=== PATIENT | male | born 1955 | race Caucasian/White ===

== ENCOUNTER 2018-05-31 13:08 | Inpatient (IN) | payer OTHER ==
[~2018-05-31] VITALS: Ht 182.9 cm; Wt 132.3 kg
[2018-05-31 13:37] VITALS: Ht 182.9 cm; Wt 132.3 kg
[2018-05-31 16:36] LABS: BASOPHIL % 0.7 % (0-2); PLATELET COUNT 223 x10^3mcL (130-400); RED CELL DISTRIBUTION WIDTH 13.3 % (11.5-14.5)
[2018-05-31 16:47] LABS: UA SPECIFIC GRAVITY <=1.005 (1.005-1.035); microscopic required? YES; urine erythrocyte 1+ (NEGATIVE)
[2018-05-31 16:54] LABS: ALBUMIN 4.4 g/dL (3.4-5.0); BILIRUBIN TOTAL 0.92 mg/dL (0.20-1.00); CALCIUM 8.8 mg/dL (8.5-10.1); CARBON DIOXIDE 27.8 mmol/L (21-32); CREATININE SERUM 1.6 mg/dL (0.7-1.3); POTASSIUM SERUM 3.4 mmol/L (3.5-5.1); TOTAL PROTEIN, SERUM 8.2 g/dL (6.4-8.2)
[2018-05-31 20:01] LABS: T3 TOTAL 1.07 ng/mL
[2018-05-31 20:09] LABS: CHOLESTEROL/HDL RATIO 3.1; FREE T4 1.13 ng/dL (0.76-1.46); FREE THYROXINE INDEX 3.8 ug/dL (1.4-4.5); MAGNESIUM 1.3 mg/dL (1.8-2.4); PHOSPHOROUS 3.3 mg/dL (2.5-4.9); T4(THYROXINE) 12.1 ug/dL (4.7-13.3)
[2018-05-31 20:14] LABS: AMPHETAMINE QUAL UR NONE DETECTED (See below)
[2018-05-31 20:30] VITALS: BP 113/75
[2018-05-31 20:39] VITALS: BP 132/80
[2018-06-01] MEDS ORDERED: HYDROCHLOROTHIA50 MG PO (01:09)
[2018-06-01] MEDS ORDERED: METFORMIN HCL850 MG PO (01:13)
[2018-06-01] MEDS ORDERED: OMEPRAZOLE MAGN20 M1 PO (01:17)
[2018-06-01] MEDS ORDERED: AMLODIPINE BESY10 M2 PO (01:18)
[2018-06-01] MEDS ORDERED: BENAZEPRIL HYDR40 M1 PO (01:19)
[2018-06-01 02:20] LABS: IRON 64 ug/dL (65-170); TOTAL IRON BINDING CAPACITY 374 ug/dL (250-450)
[2018-06-01 02:25] LABS: CARBON DIOXIDE 28.2 mmol/L (21-32); CREATININE SERUM 1.3 mg/dL (0.7-1.3); POTASSIUM SERUM 3.2 mmol/L (3.5-5.1)
[2018-06-01 02:41] LABS: RED BLOOD CELLS 3.61 M/mm3 (4.52-5.90)
[2018-06-01 05:10] VITALS: BP 115/70
[2018-06-01 07:39] LABS: CALCIUM 8.8 mg/dL (8.5-10.1); CHLORIDE SERUM 91 mmol/L (98-107); CREATININE SERUM 1.1 mg/dL (0.7-1.3); GFR1 > 60 mL/min; GLUCOSE SERUM 100 mg/dL (74-106); POTASSIUM SERUM 3.3 mmol/L (3.5-5.1); SODIUM SERUM 129 mmol/L (136-145)
[2018-06-01 07:54] LABS: BASOPHIL % 0.4 % (0-2); PLATELET COUNT 196 x10^3mcL (130-400); RED CELL DISTRIBUTION WIDTH 13.1 % (11.5-14.5)
[2018-06-01 08:42] VITALS: BP 105/62
[2018-06-01 13:00] VITALS: BP 118/60
[2018-06-01 17:26] VITALS: BP 130/68
[2018-06-01 20:39] VITALS: BP 125/90
[2018-06-02 05:16] VITALS: BP 136/84
[2018-06-02 07:35] LABS: BASOPHIL % 0.5 % (0-2); PLATELET COUNT 209 x10^3mcL (130-400); RED CELL DISTRIBUTION WIDTH 13.5 % (11.5-14.5)
[2018-06-02 07:59] LABS: CALCIUM 8.8 mg/dL (8.5-10.1); CARBON DIOXIDE 25.5 mmol/L (21-32); CHLORIDE SERUM 98 mmol/L (98-107); GFR1 > 60 mL/min; GLUCOSE SERUM 107 mg/dL (74-106); POTASSIUM SERUM 3.6 mmol/L (3.5-5.1); SODIUM SERUM 134 mmol/L (136-145)
[2018-06-02 08:39] VITALS: BP 119/74
[2018-06-02 13:45] VITALS: BP 119/74
== END 2018-06-02 18:02 | disposition home or self-care (01) | DRG 48 ==
LOC: ED 13:08 → DU 18:13 → MU 06-01 08:56 → DU 06-02 06:16
PROVIDERS: Emergency Medicine; Family Medicine
DX: G90.8 Other disorders of autonomic nervous system (principal); N17.0 Acute kidney failure with tubular necrosis; E87.1 Hypo-osmolality and hyponatremia; E83.42 Hypomagnesemia; E11.9 Type 2 diabetes mellitus without complications; D64.9 Anemia, unspecified; F17.210 Nicotine dependence, cigarettes, uncomplicated; E86.0 Dehydration; G89.29 Other chronic pain; M54.9 Dorsalgia, unspecified; T67.5XXA Heat exhaustion, unspecified, initial encounter; X58.XXXA Exposure to other specified factors, initial encounter; I11.0 Hypertensive heart disease with heart failure; I50.9 Heart failure, unspecified; Z60.2 Problems related to living alone; E87.6 Hypokalemia; E78.5 Hyperlipidemia, unspecified; Z68.38 Body mass index [BMI] 38.0-38.9, adult; Z79.84 Long term (current) use of oral hypoglycemic drugs; Z88.0 Allergy status to penicillin; Z72.89 Other problems related to lifestyle; Y93.89 Activity, other specified; Y92.89 Other specified places as the place of occurrence of the external cause; Y99.8 Other external cause status; Z90.49 Acquired absence of other specified parts of digestive tract; Z80.0 Family history of malignant neoplasm of digestive organs; Z80.1 Family history of malignant neoplasm of trachea, bronchus and lung
CPT/HCPCS: 82962; 83880; 84439; J3475; J7030; Q0092; Q0162

== ENCOUNTER 2018-10-09 21:46 | Emergency (ER) | payer MEDICAID ==
[~2018-10-09] VITALS: Ht 182.9 cm; Wt 132.9 kg
[~2018-10-09 21:46] MED LIST: AMLODIPINE BESY10 M2 PO; BENAZEPRIL HYDR40 M1 PO; HYDROCHLOROTHIA50 MG PO; METFORMIN HCL850 MG PO; OMEPRAZOLE MAGN20 M1 PO
[2018-10-09 22:58] VITALS: Ht 182.9 cm; Wt 132.9 kg
[2018-10-10 01:09] VITALS: BP 139/91
== END 2018-10-10 01:09 | disposition home or self-care (01) ==
LOC: ED 21:46
DX: I83.892 Varicose veins of left lower extremity with other complications (principal); I10 Essential (primary) hypertension; E11.9 Type 2 diabetes mellitus without complications; G89.29 Other chronic pain; Z98.890 Other specified postprocedural states; Z88.0 Allergy status to penicillin; W57.XXXA Bitten or stung by nonvenomous insect and other nonvenomous arthropods, initial encounter; Y93.89 Activity, other specified; Y92.89 Other specified places as the place of occurrence of the external cause; Y99.8 Other external cause status

== ENCOUNTER 2018-10-22 07:00 | Emergency (ER) | payer MEDICAID ==
[~2018-10-22] VITALS: Ht 182.9 cm; Wt 131.5 kg
[2018-10-22 07:04] VITALS: Ht 182.9 cm; Wt 131.5 kg
[2018-10-22 08:03] LABS: CALCIUM 8.5 mg/dL (8.5-10.1); CARBON DIOXIDE 30.4 mmol/L (21-32); CHLORIDE SERUM 90 mmol/L (98-107); CREATININE SERUM 0.9 mg/dL (0.7-1.3); GFR1 > 60 mL/min; GLUCOSE SERUM 137 mg/dL (74-106); SODIUM SERUM 130 mmol/L (136-145)
[2018-10-22 08:08] LABS: ALBUMIN 4.2 g/dL (3.4-5.0); ALKALINE PHOSPHATASE 66 U/L (46-116); ALT/SGPT 34 U/L (16-63); AST/SGOT 38 U/L (15-37); BILIRUBIN TOTAL 0.49 mg/dL (0.20-1.00)
[2018-10-22 09:20] LABS: BASOPHIL % 0.2 % (0-2); PLATELET COUNT 233 x10^3mcL (130-400); RED CELL DISTRIBUTION WIDTH 13.9 % (11.5-14.5)
[2018-10-22 11:08] VITALS: BP 160/93
== END 2018-10-22 11:26 | disposition home or self-care (01) ==
LOC: ED 07:00
PROVIDERS: Emergency Medicine
DX: E87.1 Hypo-osmolality and hyponatremia (principal); R60.0 Localized edema; G89.29 Other chronic pain; M54.5 Low back pain; I10 Essential (primary) hypertension; E11.9 Type 2 diabetes mellitus without complications; Z98.890 Other specified postprocedural states; Z88.0 Allergy status to penicillin
CPT/HCPCS: 83880; J1885; J1940; J2270; Q0092

== ENCOUNTER 2019-01-09 14:04 | Emergency (ER) | payer OTHER ==
[~2019-01-09] VITALS: Ht 182.9 cm; Wt 138.3 kg
[2019-01-09 14:47] VITALS: Ht 182.9 cm; Wt 138.3 kg
[2019-01-09 17:04] LABS: BASOPHIL % 0.8 % (0-2); PLATELET COUNT 271 x10^3mcL (130-400); RED CELL DISTRIBUTION WIDTH 13.6 % (11.5-14.5)
[2019-01-09 17:12] LABS: CALCIUM 9.2 mg/dL (8.5-10.1); CARBON DIOXIDE 25.6 mmol/L (21-32); CHLORIDE SERUM 90 mmol/L (98-107); CREATININE SERUM 0.8 mg/dL (0.7-1.3); GFR1 > 60 mL/min; GLUCOSE SERUM 91 mg/dL (74-106); POTASSIUM SERUM 4.3 mmol/L (3.5-5.1); SODIUM SERUM 127 mmol/L (136-145)
[2019-01-09 17:16] LABS: ALBUMIN 4.2 g/dL (3.4-5.0); ALKALINE PHOSPHATASE 62 U/L (46-116); ALT/SGPT 37 U/L (16-63); AST/SGOT 52 U/L (15-37); BILIRUBIN TOTAL 0.41 mg/dL (0.20-1.00); LIPASE 203 IU/L (73-393); TOTAL PROTEIN, SERUM 8.1 g/dL (6.4-8.2)
[2019-01-09 17:50] LABS: microscopic required? NO
[2019-01-09 18:17] LABS: urine erythrocyte NEGATIVE (NEGATIVE)
[2019-01-09 22:00] VITALS: BP 148/80
== END 2019-01-09 22:00 | disposition home or self-care (01) ==
LOC: ED 14:04
PROVIDERS: Emergency Medicine
DX: R10.30 Lower abdominal pain, unspecified (principal); E87.1 Hypo-osmolality and hyponatremia; I10 Essential (primary) hypertension; E11.9 Type 2 diabetes mellitus without complications; M54.9 Dorsalgia, unspecified; G89.29 Other chronic pain; Z88.0 Allergy status to penicillin
CPT/HCPCS: 36415; J1885; Q0092

== ENCOUNTER 2019-02-25 01:27 | Emergency (ER) | payer OTHER ==
[~2019-02-25] VITALS: Ht 182.9 cm; Wt 138.3 kg
[2019-02-25 01:34] VITALS: Ht 182.9 cm; Wt 138.3 kg
[2019-02-25 03:36] VITALS: BP 140/85
== END 2019-02-25 03:36 | disposition home or self-care (01) ==
LOC: ED 01:27
DX: R51 Headache (principal); G47.00 Insomnia, unspecified; G89.29 Other chronic pain; R10.9 Unspecified abdominal pain; I10 Essential (primary) hypertension; E11.9 Type 2 diabetes mellitus without complications; Z98.890 Other specified postprocedural states; W10.8XXA Fall (on) (from) other stairs and steps, initial encounter; Y93.89 Activity, other specified; Y92.89 Other specified places as the place of occurrence of the external cause; Y99.8 Other external cause status

== ENCOUNTER 2019-04-05 00:16 | Emergency (ER) | payer OTHER ==
[~2019-04-05] VITALS: Ht 182.9 cm; Wt 122.5 kg
[2019-04-05 00:27] VITALS: Ht 182.9 cm; Wt 122.5 kg
[2019-04-05 01:32] VITALS: BP 135/84
== END 2019-04-05 01:32 | disposition home or self-care (01) ==
LOC: ED 00:16
DX: I83.91 Asymptomatic varicose veins of right lower extremity (principal); I10 Essential (primary) hypertension; E11.9 Type 2 diabetes mellitus without complications; G89.29 Other chronic pain; Z88.0 Allergy status to penicillin; Z90.49 Acquired absence of other specified parts of digestive tract; Z98.890 Other specified postprocedural states
CPT/HCPCS: J2001

== ENCOUNTER 2019-05-08 03:12 | Inpatient (IN) | payer OTHER ==
[~2019-05-08] VITALS: Ht 185.4 cm; Wt 107.5 kg
[2019-05-08 03:31] VITALS: Ht 185.4 cm; Wt 107.5 kg
--- NOTE | 2019-05-08 03:37 | NUR ---
PT BROUGHT IN BY AMBULANCE FOR FALL, PT CALLED 911. PER PARAMEDICS, BLOOD WAS FOUND IN BATHROOM AND THEY WERE UNABLE TO GET ACCURATE STORY. PT APPEARS TO INTERMITTENTLY SHAKE ARMS. PT WITH SLIGHTLY SLURRED SPEECH, RESPONDS TO VERBAL STIMULI. AWAKE, ALERT. RESPIRATIONS EVEN AND UNLABORED. SAFETY PRECAUTIONS IN PLACE
[2019-05-08 03:39] LABS: BASOPHIL % 0.2 % (0-2); PLATELET COUNT 182 x10^3mcL (130-400)
[2019-05-08 03:40] LABS: RED CELL DISTRIBUTION WIDTH 18.4 % (11.5-14.5)
--- NOTE | 2019-05-08 03:43 | NUR ---
PT PROVIDED WITH URINAL AND INSTRUCTED TO PROVIDE URINE SAMPLE, PT VERBALIZES UNDERSTANDING
[2019-05-08 03:51] LABS: CALCIUM 9.5 mg/dL (8.5-10.1); CARBON DIOXIDE 29.6 mmol/L (21-32); CHLORIDE SERUM 101 mmol/L (98-107); CREATININE SERUM 1.9 mg/dL (0.7-1.3); GFR1 38 mL/min; GLUCOSE SERUM 131 mg/dL (74-106); POTASSIUM SERUM 4.3 mmol/L (3.5-5.1); SODIUM SERUM 142 mmol/L (136-145)
[2019-05-08 03:57] LABS: ALBUMIN 3.6 g/dL (3.4-5.0); ALKALINE PHOSPHATASE 46 U/L (46-116); ALT/SGPT 71 U/L (16-63); AST/SGOT 90 U/L (15-37); BILIRUBIN TOTAL 0.6 mg/dL (0.20-1.00); CHOLESTEROL 119 mg/dL (<200); TOTAL PROTEIN, SERUM 7.2 g/dL (6.4-8.2)
--- NOTE | 2019-05-08 03:58 | NUR ---
PT STATES HE WAS UNABLE TO PROVIDE URINE SAMPLE AT THIS TIME.
--- NOTE | 2019-05-08 04:08 | NUR ---
PT TAKEN FOR CT SCAN BY RELEASE AND TECHNICAL RECORDS CLERK IN NO ACUTE DISTRESS
--- NOTE | 2019-05-08 04:19 | NUR ---
PT BACK FROM CT SCAN. RESTING WITH EYES CLOSED, RESPONDS TO VERBAL STIMULI. RESPIRATIONS EVEN AND UNLABORED. SAFETY PRECAUTIONS IN PLACE
--- NOTE | 2019-05-08 04:28 | NUR ---
PT ENCOURAGED TO PROVIDE URINE SAMPLE. PT STATES "PLEASE DON'T PUT A CATHETER IN. I'LL PEE WHEN I CAN." WILL CONTINUE TO MONITOR
[2019-05-08] MEDS ORDERED: GOOD SENSE OMEP20 MG (04:56)
[2019-05-08] MEDS ORDERED: NOR10 PO (04:56)
[2019-05-08] MEDS ORDERED: METFORMIN850 M1 PO (04:56)
[2019-05-08] MEDS ORDERED: ASPIR 8181 MG PO (04:57)
[2019-05-08] MEDS ORDERED: GABAPENTIN100 M2 PO (04:57)
--- NOTE | 2019-05-08 05:08 | NUR ---
REPORT GIVEN TO SONYA CHRISTIAN, ALL QUESTIONS AND CONCERNS WERE ADDRESSED.
--- NOTE | 2019-05-08 05:25 | NUR ---
PT ARRIVED VIA GURNEY ACCOMPANIED BY RN, PT IS A/O X 3 SLURRED SPEECH AND LETHARGIC, ASSESSMENT PERFORMED, MULTIPLE ABRAISIONS AND SCABS TO THE BLE, UPPER LEFT EXTREMITY, AND SCAB TO FOREHEAD, PT ORIENTED TO THE CONTROLS OF THE ROOM, TELE 21 AFIB, IV TO THE RIGHT FOREARM, BED IN THE LOWEST POSITION, CALL LIGHT WITH IN REACH SIDE RAILS UP, WILL CONTINUE TO MONITOR
[2019-05-08 05:57] VITALS: BP 134/80
--- NOTE | 2019-05-08 06:55 | NUR ---
CALLED DR FUENTES ABOUT AFIB ON TELE STRIP NO NEW ORDERS AT THIS TIME
[2019-05-08] MEDS ORDERED: BENAZEPRIL HYDR40 M1 PO (07:38)
[2019-05-08] MEDS ORDERED: IBUPROFEN100 M1 PO (07:40)
[2019-05-08] MEDS ORDERED: COLACE100 MG PO (07:40)
--- NOTE | 2019-05-08 07:40 | NUR ---
RECEIVED PT FROM CARD PUNCHER RN. Bouchra/OX4. LETHARGIC BUT AROUSABLE TO TACTILE STIMULATION. SPEECH SLURRED AND INAPPROPRIATE. TELE#15. DENIES CHEST PAIN/PRESSURE. RESPIRATIONS EQUAL AND UNLABORED ON RA. DENIES SOB AT THIS TIME. IV TO RFA PATNET AND INFUSING. NO REDNESS OR SWELLING NOTED. FALL PRECAUTIONS IN PLACE. WILL CONTINUE TO MONITOR. CALL LIGHT IN REACH. BED IN LOWEST POSITION. BED ALARM IN PLACE.
[2019-05-08] MEDS ORDERED: ALLERGY10 M2 PO (07:41)
[2019-05-08] MEDS ORDERED: DULCOLAX5 M1 PO (07:42)
[2019-05-08] MEDS ORDERED: BUMETANIDE1 MG PO (07:43)
[2019-05-08] MEDS ORDERED: BACLOFEN10 MG (07:43)
[2019-05-08] MEDS ORDERED: SIMVASTATIN10 M1 PO (07:43)
[2019-05-08 08:09] VITALS: BP 116/61
--- NOTE | 2019-05-08 09:26 | NUR ---
PT SITTING UP IN BED. AWAKE/ALERT. SPEECH INAPPROPRIATE AND SLURRED. NO ACUTE RESP DISTRESS NOTED ON RA. PT ATE LUNCH, SWALLOWED AND TOLERATED WELL. IV PATENT AND INFUSING TO RFA. NO REDNESS OR SWELLING NOTED. WILL CONTINUE TO MONITOR. CALL LIGHT IN REACH. BED IN LOWEST POSITION. BED ALARM IN PLACE.
--- NOTE | 2019-05-08 09:41 | NUR ---
SPOKE WITH DR. FUENTES. DR. FUENTES MADE AWARE OF PT MENTAL STATUS. PER DR. FUENTES MAINTAIN IV FLUIDS HYDRATION NS @100ML/HR. DR. FUENTES MADE AWARE OF MED RECONCILLIATION DONE AND PT CONVERTING TO NSR WITH 1ST DEGREE AVB
[2019-05-08 10:15] LABS: UA SPECIFIC GRAVITY 1.015 (1.005-1.035); microscopic required? YES; urine erythrocyte TRACE (NEGATIVE)
--- NOTE | 2019-05-08 10:17 | NUR ---
SPOKE WITH DR. SOFIA. PER DR. SOFIA ORDERED METROPROLOL 25 MG BID PO HOLD IF SBP<100 OR HR <60, ELIQUIS 5 MG PO BID AND EKG TODAY. CONFIRMED ORDER TORB.
[2019-05-08 10:32] LABS: AMPHETAMINE QUAL UR NONE DETECTED (See below)
--- NOTE | 2019-05-08 11:20 | NUR ---
ASSISTED PT TO BATHROOM, GAIT UNSTEADY. PT INSIST ON WALKING TO BATHROOM. PT SITTING UP AT BEDSIDE. ENCOURAGED PT TO USE CALL LIGHT WHEN IN NEED OF ASSISTANCE BACK TO BED. NO ACUTE RESP DISTRESS NOTED ON RA. IV FLUIDS INFUSING ORDERED. NO REDNESS OR SWELLING NOTED. PT TALKING TO HIMSELF. WILL CONTINUE TO MONITOR. CALL LIGHT IN REACH. BED IN LOWEST POSITION.
--- NOTE | 2019-05-08 12:15 | NUR ---
INITIATED TELE NEURO CONSULT
[2019-05-08 12:53] VITALS: BP 127/66
--- NOTE | 2019-05-08 13:45 | NUR ---
PT SITTING UP IN BED. DROWSY BUT AROUSABLE TO VOICE. PT C/O BACK PAIN 08/06. PT STATES PAIN IS CHRONIC AND HE TAKES NORCO AT HOME. MEDICATED PER EMAR. TOLERATED WELL. IV PATENT AND INFUSING. NO REDNESS OR SWELLING NOTED. WILL CONTINUE TO MONITOR. CALL LIGHT IN REACH. BED IN LOWEST POSITION. BED ALARM IN PLACE.
--- NOTE | 2019-05-08 15:51 | NUR ---
PT SITTING UP IN BED. NO ACUTE RESP DISTRESS NOTED ON RA. PT REFUSING GABAPENTIN. PT STATES "I WANT BREAK FROM IT. IT MAKES ME ALL DROWSY." IV PATENT AND INFUSING TO RFA. NO REDNESS OR SWELLING NOTED. WILL CONTINUE TO MONITOR. CALL LIGHT IN REACH. BED IN LOWEST POSITION. BED ALARM IN PLACE.
[2019-05-08 15:58] VITALS: BP 134/64
--- NOTE | 2019-05-08 16:55 | NUR ---
PT STANDING UP AT BEDSIDE. ASSISTED PT BACK TO BED. BLOOD SUGAR CHECKED WAS 128. NO COVERAGED NEEDED. IV PATENT AND INFUSING TO RFA. NO REDNESS OR SWELLING NOTED. ASSISTED PT TO BATHROOM. US CHARTER AND TOUR BUS DRIVER AT BEDSIDE FOR ECHO. WILL CONTINUE TO MONITOR. CALL LIGHT IN REACH. BED IN LOWEST POSITION.
--- NOTE | 2019-05-08 18:37 | NUR ---
PT SITTING UP AT BEDSIDE EATING DINNER. TELE#21. RESPIRATIONS EQUAL AND UNLABORED ON RA. NO ACUTE RESP DISTRESS NOTED. IV PATENT AND INFUSING TO RFA. NO REDNESS OR SWELLING NOTED. BED ALARM IN PLACE. ENCOURAGED PT TO USE CALL LIGHT WHEN NEEDING ASSISTANCE TO BATHROOM OR OOB. PT VERBALIZED UNDERSTANDING. WILL ENDORSE TO QUALITY AUDITOR RN. CALL LIGHT IN REACH. BED IN LOWEST POSITION.
--- NOTE | 2019-05-08 19:03 | NUR ---
TELE NEURO CONSULT COMPLETED WITH DR. LAUREN NEUROLOGIST. PER DR. LAUREN WILL CONTACT DR. FUENTES TO NOTIFY HIM OF RECOMMENDATIONS.
--- NOTE | 2019-05-08 19:30 | NUR ---
RECIEVED PT FROM DAY SHIFT RN IN NO ACUTE DISTRESS. AOX4. MILDLY LETHARGIC. TELE #21, SR WITH 1ST AVB. SWELLING/REDNESS NOTED TO LFA, ELEVATED WITH ICEPACK. ABRASIONS NOTED TO FOREHEAD, BUE, AND BLE. C/O BACK PAIN 5/10, WILL MEDICATE PER EMAR. IV TO RFA, PATENT AND INFUSING. BED IN LOWEST POSITION, 2 SIDE RAILS UP, CALL LIGHT IN REACH. INSTRUCTED TO CALL FOR ASSISTANCE.
--- NOTE | 2019-05-08 20:27 | NUR ---
SPOKE WITH DR. FUENTES REGARDING TELE NEURO RECOMMENDATIONS. MRI W/O CONTRAST ORDERED, PER RECOMMENDATIONS AND DR. FUENTES. BOARD HAMMER OPERATOR CONCHA MADE AWARE.
[2019-05-08 21:38] VITALS: BP 124/71
--- NOTE | 2019-05-09 00:16 | NUR ---
PATIENT COMPLAINED OF SORE THROAT, DR FUENTES INFORMED AND WITH ORDER RECEIVED AND NOTED,WILL RELAY TO ASSIGN NURSE BECCA-RN.
--- NOTE | 2019-05-09 00:41 | NUR ---
RESTING IN BED WITH EYES CLOSED. BREATHING E/U. NO ACUTE DISTRESS NOTED. WILL CONTINUE TO MONITOR.
--- NOTE | 2019-05-09 06:15 | NUR ---
INCREASED ERYTHEMA, SWELLING, AND WARMTH TO LFA, OUTLINED WITH MARKER. C/O GENERALIZED BODY ACHE THROUGHOUT NIGHT. NO ACUTE DISTRESS NOTED. WILL ENDORSE TO ONCOMING RN
[2019-05-09 06:17] VITALS: BP 137/79
[2019-05-09 06:41] LABS: BASOPHIL % 0.3 % (0-2); PLATELET COUNT 164 x10^3mcL (130-400)
[2019-05-09 06:46] LABS: CHLORIDE SERUM 100 mmol/L (98-107); POTASSIUM SERUM 3.4 mmol/L (3.5-5.1); SODIUM SERUM 137 mmol/L (136-145)
--- NOTE | 2019-05-09 06:58 | NUR ---
DR FUENTES MADE AWARE THAT MRI IS GOING TO BE DONE NOT UNTIL [facility] D/T NO TECH ON THE WEEKEND, ALSO INFORMED HIM THAT PATIENT LEFT FOREARM IS RED/SWOLLEN AND WARM TO TOUCH, MD ORDERED USVLFA TO CHECK FOR DVT.
[2019-05-09 07:30] LABS: ALKALINE PHOSPHATASE 50 U/L (46-116); ALT/SGPT 52 U/L (16-63); AST/SGOT 51 U/L (15-37); BILIRUBIN TOTAL 0.52 mg/dL (0.20-1.00); CALCIUM 8.6 mg/dL (8.5-10.1); CREATININE SERUM 0.7 mg/dL (0.7-1.3); GFR1 > 60 mL/min; GLUCOSE SERUM 111 mg/dL (74-106)
[2019-05-09 07:31] LABS: ALBUMIN 2.8 g/dL (3.4-5.0)
--- NOTE | 2019-05-09 07:40 | NUR ---
RECEIVED PT FROM METHOD CONSULTANT RN. Bouchra/OX4. DROWSY BUT AROUSABLE TO VOICE. TELE#21. DENIES CHEST PAIN/PRESSURE. RESPIRATIONS EQUAL AND UNLABORED ON RA. DENIES SOB. PT C/O GENERALIZED BODY ACHES. PT STATES HE HAD HARD TIME SLEEPING. SWELLING NOTED TO LFA, LFA REDNESS AND WARMTH NOTED. PT STATES PAIN IS PAINFUL. IV TO RFA PATENT AND INFUSING. NO REDNESS OR SWELLING NOTED. WILL CONTINUE TO MONITOR. CALL LIGHT IN REACH. BED IN LOWEST POSITION.
[2019-05-09 07:41] LABS: T4(THYROXINE) 7.3 ug/dL (4.7-13.3)
[2019-05-09 07:42] LABS: RED CELL DISTRIBUTION WIDTH 18.6 % (11.5-14.5)
[2019-05-09 09:35] VITALS: BP 138/78
--- NOTE | 2019-05-09 09:36 | NUR ---
PT SITTING UP IN BED. DROWSY BUT AROUSABLE TO VOICE. PT STATE HE HAD GENERALIZED BODY ACHES 10/. PT STATES NORCO HELPS WITH HIS PAIN. MEDICATED PER EMAR. GIVEN PO MEDS. TOLERATED WELL. IV PATENT AND INFUSING. NO REDNESS OR SWELLING NOTED, ASSITED PT TO BATHROOM, SLOW GAIT. ENCOURAGED PT TO USE CALL LIGHT WHEN GETTING OOB. PT VERBALIZED UNDERSTANDING. WILL CONTINUE TO MONITOR. CALL LIGHT IN REACH.
[2019-05-09 11:32] LABS: ERYTHROCYTE SED RATE 25 mm/hr (0-20)
--- NOTE | 2019-05-09 12:32 | NUR ---
PT SITTING UP AT BEDSIDE. NO ACUTE RESP DISTRESS NOTED ON RA. PT C/O GENERALIZED BODY PAIN ACHING. BLOOD SUGAR WAS CHECKED WAS 172. GIVEN 2 UNITS OF REGULAR INSULIN PER SLIDDING SCALE. GIVEN PO MEDS. TOLERATED WELL. WILL CONTINUE TO MONITOR. CALL LIGHT IN REACH. BED IN LOWEST POSITION.
[2019-05-09 12:55] VITALS: BP 105/62
--- NOTE | 2019-05-09 13:41 | NUR ---
PT IN BED RESTING. NO ACUTE RESP DISTRESS NTOED ON RA. PT STATES HE STILL HAS GENERALIZED BODY ACHES. GIVEN PO MEDS. TOLERATED WELL. IV PATENT AND INFUSING TO RFA. NO REDNESS OR SWELLING NOTED. WILL CONTINUE TO MONITOR. CALL LIGHT IN REACH. BED IN LOWEST POSITION.
--- NOTE | 2019-05-09 17:19 | NUR ---
PT SITTING UP IN BED WATCHING TV. PT STATES HIS PAIN HAS IMPROVED SINCE ARRIVING TO HOSPITAL. PT STATES I JUST FEEL TIRED RIGHT NOW. LFA SWOLLEN AND WARM TO TOUCH. PROVIDED PT WITH ICE PACK. IV ANTIBIOTICS INFUSING ORDERED. NO REDNESS OR SWELLING NOTED. EMPTIED 200 ML OF DARK YELLOW URINE FROM URINAL. WILL CONTINUE TO MONITOR. CALL LIGHT IN REACH. BED IN LOWEST POSITION.
[2019-05-09 17:56] VITALS: BP 132/78
--- NOTE | 2019-05-09 18:33 | NUR ---
PT SITTING UP AT BEDSIDE. RESPIRATIONS EQUAL AND UNLABORED ON RA. DENIES SOB. PT STILL HAVE GENERALIZED BODY ACHES BUT TUT PT STATES PAIN IS TOLERABLE AT THIS TIME. IV TO RFA PATENT AND INFUSING. NO REDNESS OR SWELLING NOTED. LFA RED, SWOLLEN AND WARM TO TOUCH. PT STILL USING ICE PACK. EMPTIED 100 ML OF DARK YELLOW URINE FROM URINAL. WILL ENDORSE TO WOOD VENEER TAPER RN. CALL LIGHT IN REACH. BED IN LOWEST POSITION.
--- NOTE | 2019-05-09 19:21 | NUR ---
PT C/O GENERALIZED BODY ACHES 08/06. MEDICATED PER EMAR. WILL ENDORSE TO FAMILY CENTERED SPECIALIST RN.
[2019-05-09 19:48] VITALS: BP 133/76
--- NOTE | 2019-05-09 19:48 | NUR ---
RECEIVED REPORT FROM AM NURSE. PT AAOX4, ABLE TO MAKE NEEDS KNOWN. ON TELE#21 NSR, BP 133/76, HR 73. DENIES CP/PRESSURE AT THIS TIME. PALPABLE PULSES TO BLE. EDEMA TO BLE AND LFA NOTED. LUNG SOUNDS CTA ON RA. BREATHING EVEN AND UNLABORED. NO ACUTE DISTRESS NOTED. ABD SOFT AND NON DISTENDED, ACTIVE BOWEL SOUNS X4 QUAD. DENIES N/V/D. LAST BM 05/09/19. VOIDS FREELY BRP. GENERALIZED WEAKNESS, AMBULATORY WITH ASSIST. REDNESS TO LFA NOTED. LFA WARM TO TOUCH. ABRASION TO FOREHEAD, BUE AND BLE. NS RUNNING TO LFA AT 100ML/HR. SITE FREE FROM REDNESS AND SWELLING. BED AT LOWEST SETTING. SIDE RAILS X2 UP. CALL LIGHT WITHING REACH. WILL CONTINUE TO MONITOR.
--- NOTE | 2019-05-10 01:24 | NUR ---
PT IN BED SLEEPING COMFORTABLY. BREATHING EVEN AND UNLABORED ON RA. NO ACUTE DISTRESS NOTED. BED AT LOWEST POSITION, SIDE RAILS X2 UP, CALL LIGHT WITHING REACH. WILL CONTINUE TO MONITOR.
--- NOTE | 2019-05-10 04:55 | NUR ---
PT IN BED SLEEPING, BREATHING EVEN AND UNLABORED ON RA . NO ACUTE DISTRESS NOTED. ALL NEEDS ASSESSED AND ATTENDED TO. BED AT LOWEST SETTING. SIDE RAILS X2 UP. CALL LIGHT WITHING REACH. WILL ENDORSE CARE TO AM NURSE.
[2019-05-10 06:06] VITALS: BP 123/77
[2019-05-10 06:48] LABS: CARBON DIOXIDE 27.1 mmol/L (21-32); CHLORIDE SERUM 102 mmol/L (98-107); CREATININE SERUM 0.6 mg/dL (0.7-1.3); GFR1 > 60 mL/min; GLUCOSE SERUM 97 mg/dL (74-106); POTASSIUM SERUM 3.7 mmol/L (3.5-5.1); SODIUM SERUM 139 mmol/L (136-145)
[2019-05-10 06:50] LABS: BASOPHIL % 0.2 % (0-2); PLATELET COUNT 170 x10^3mcL (130-400)
[2019-05-10 07:06] LABS: RAPID PLASMA REAGIN Non Reactive (Non Reactive)
[2019-05-10 07:45] VITALS: BP 136/82
[2019-05-10 07:46] LABS: RED CELL DISTRIBUTION WIDTH 18.2 % (11.5-14.5)
--- NOTE | 2019-05-10 07:51 | NUR ---
PT ENDORSE TO ME THIS MORNING. LAYING IN BED RESTING. AA/OX4 . BREATHING EVEN AND UNLABORED ON RA,NO ACUTE RESP DISTRESS OR SOB NOTED. TELE 21 SR WITH AVB, HR 61, DENIES ANY CP OR PRESSURE. BOWEL SOUNDS ACTIVE IN ALL FOUR QUADS, LAST BM 05/09. EDEMA NOTED TO LFA TRACE. VOIDS FREELY/ URINAL AT BEDSIDE. GEN WEAKNESS/AMB/ UNSTEADY. LFA SWOLLEN NOTED/ELEVATED ON PILLOW. ABRASIONS TO FOREHEAD, BUE/ BLE, R KNEE/ ELEMENT WINDING MACHINE TENDER. IV TO THE RFA INFUSING AT 100ML/HR, NO REDNESS OR SWELLING NOTED. CALL LIGHT IN REACH. BED IN LOW POSITION, BY NURSING STATION. WILL CONTINUE TO MONITOR.
[2019-05-10 09:10] LABS: RHEUMATOID ARTHRITIS FACTOR 11.1 IU/mL (0.0-13.9)
--- NOTE | 2019-05-10 09:44 | NUR ---
PT C/O ABD /GEN BODY PAIN, MEDICATED PER EMAR.
--- NOTE | 2019-05-10 11:45 | NUR ---
PER PT STATED NORCO DIDNT ASSIST WITH BACK AND GEN BODY PAIN, MEDICATED PER EMAR WITH ADVIL. WILL CONTINUE TO MONITOR.
[2019-05-10 12:00] VITALS: BP 120/73
--- NOTE | 2019-05-10 14:07 | NUR ---
PT TOLERATED 100 % OF HIS LUNCH. AMB TO BATHROOM AND BACK X2. TOTAL URINE OUTPUT 700ML/NOTED. CONTINUE TO C/O GEN BODY PAIN, REFUSING TO TAKE MORPHINE. MEDICATED PER EMAR WITH NORCO. WILL CONTINUE TO MONITOR
[2019-05-10 16:48] VITALS: BP 135/80
--- NOTE | 2019-05-10 18:24 | NUR ---
NO ACUTE CHANGES AT THIS TIME/ NO ACUTE RESP DISTRESS OR SOB NOTED/ DENIES ANY DISCOMFORT AT THIS TIME/ OR CP. IV TO THE RFA INTACT AND PATENT, INFUSING AT 50ML/HR PER DR. SOFIA ORDERS/ TOLERATING WELL. WILL ENDORSE TO INCOMING RN.
--- NOTE | 2019-05-10 19:35 | NUR ---
RECEIVED PT FROM DAY SHIFT RN. PT AAOX4 DENIES HEADACHE OR DIZZINESS. BREATHING EVEN AND UNLABORED WITH NO SOB NOTED. TELE #21, SR HR 67. PT DENIES CHEST PAIN OR PRESSURE. IV RFA PATENT, INFUSING WELL. ABD SOFT AND ROUND, ACTIVE BOWEL SOUNDS, DENIES ABD PAIN/N/V. PT AMBULATORY WITH GENERALIZED WEAKNESS. EDEMA AND ERYTHEMA NOTED TO LFA. ECCHYMOSIS TO BILATERAL SIDE/HIP AREA. ABRASION TO BUE/BLE JUNIOR. NO SIGNS OF ACUTE DISTRESS NOTED. CALL BUTTON WITHIN REACH. SAFETY PRECAUTIONS IN PLACE. WILL CONTINUE TO MONITOR.
[2019-05-10 20:26] VITALS: BP 127/83
--- NOTE | 2019-05-10 20:37 | NUR ---
PT REPORTED HAVING GENERALIZED BODY PAIN, 7/10. MEDICATED PER EMAR. CALL BUTTON WITHIN REACH. SAFETY PRECAUTIONS IN PLACE. WILL CONTINUE TO MONITOR.
--- NOTE | 2019-05-11 00:41 | NUR ---
PT REPORTED HAVING BACK PAIN 08/06. MEDICATED PER EMAR. CALL BUTTON WITIN REACH. SAFETY PRECAUTIONS IN PLACE. WILL CONTINUE TO MONITOR.
--- NOTE | 2019-05-11 01:50 | NUR ---
PT RESTING, BREATHING EVEN AND UNLABORED WITH NO SIGNS OF DISTRESS NOTED. IV PATENT, INFUSING WELL. CALL BUTTON WITHIN REACH. SFETY PRECAUTIONS IN PLACE. WILL CONTINUE TO MONITOR.
--- NOTE | 2019-05-11 03:45 | NUR ---
PT AWAKE, DENIES PAIN. NO SIGNS OF DISTRESS NOTED. IV PATENT, INFUSING WELL. NO SIGNS OF INFILTRATION NOTED. CALL BUTTON WITHIN REACH. SAFETY PRECAUTIONS IN PLACE. WILL MONITOR.
--- NOTE | 2019-05-11 05:06 | NUR ---
PT SLEPT MOST OF THE NIGHT WITH NO SIGNS OF DISTRESS NOTED. BREATHING EVEN AND UNLABORED WITH NO SOB NOTED. IV PATENT, INFUSING WELL. NO SIGNS OF INFILTRATION NOTED. PT REPORTED HAVING GENERALIZED PAIN, MEDICATED PER EMAR WITH SOME RELIEF. PT USES URINAL AT BEDSIDE. NO SIGNS OF DISTRESS. CALL BUTTON WITHIN REACH. SAFETY PRECAUTIONS IN PLACE. WILL CONTINUE TO MONITOR AND ENDORSE CARE TO DAY SHIFT RN.
[2019-05-11 06:12] VITALS: BP 145/86
--- NOTE | 2019-05-11 06:14 | NUR ---
PT REPORTED HAVING BACK PAIN. MEDICATED PER EMAR. CALL BUTTON WITHIN REACH. SAFETY PRECAUTIONS IN PLACE. WILL CONTINUE TO MONITOR.
[2019-05-11 07:02] LABS: BASOPHIL % 0.7 % (0-2); PLATELET COUNT 202 x10^3mcL (130-400)
[2019-05-11 07:08] LABS: CALCIUM 8.6 mg/dL (8.5-10.1); CARBON DIOXIDE 23.8 mmol/L (21-32); CHLORIDE SERUM 100 mmol/L (98-107); CREATININE SERUM 0.6 mg/dL (0.7-1.3); GFR1 > 60 mL/min; GLUCOSE SERUM 94 mg/dL (74-106); RED CELL DISTRIBUTION WIDTH 18.2 % (11.5-14.5); SODIUM SERUM 136 mmol/L (136-145)
--- NOTE | 2019-05-11 07:29 | NUR ---
PT RESTING. NO SIGNS OF DISTRESS NOTED. ENDORSED CARE TO DAY SHIFT RN. ALL QUESTIONS ADDRESSED.
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
[2019-05-11 09:28] VITALS: BP 137/76
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
--- NOTE | 2019-05-11 11:40 | NUR ---
MORTISING MACHINE OPERATOR PUT IN THE ORDER FOR RT AND TREATMENT. PATIENT CONTINUED WITH LOW 02 STATURATION. XRAY WAS ORDERED FOR POSSIBLE ASPIRATION AND PER THE MANAGER INTERNATIONAL AT BEDSIDE OF STOOL THTE OUTPUT WAS BROWN IN COLOR. AWAITIGN XRAY RESULTS. TIFFANY ROSALBA BEEN ALSO ORDERED DR MURILLO FOR PULMONARY. WILL CONTINUE TO MONITOR INDICATED.
--- NOTE | 2019-05-11 12:29 | NUR ---
PATIENT IS FOR MRI BUT THE MACHINE IS UNDERGOING SOME TYPE OF ISSUE WITH THE BED BEING ABLE TO RAISE AND LOWER. STAFF ASKED ISRAEL HESTER TIF HE WAS ABLE TO STEP UP A FOOT TO THE BED. PATIENT INDICATED HE FELT HE COULD. PER PT HE DID WELL ON THE EVAL WELL AND TOLERATED AMBULATION.
[2019-05-11 12:58] VITALS: BP 140/80
--- NOTE | 2019-05-11 14:40 | NUR ---
DOWN FOR MRI AND THE ONE TO ONE RELIEF WENT WITH HIM FOR THE TECH SAFETY ISSUES. PATIENT IS AWAKE AND RECEIVED NORCO FOR PAIN PRIOR TO TRANSFER.
--- NOTE | 2019-05-11 16:20 | NUR ---
SPOKE WITH DR. FUENTES AND INFORMED HIM OF P.T RECOMMENDATIONS. RECEIVED TELEPHONE ORDER FROM DR. FUENTES TO DISCHARGE PATIENT HOME WITH HOME HEALTH PT FOR SAFETY, TELEPHONE ORDER REPEATED AND CONFIRMED, WILL PLACE ORDER UNDER SENIOR PRODUCT MANAGER. PRIMARY RN AWARE.
[2019-05-11 16:54] VITALS: BP 140/80
[2019-05-11 17:56] VITALS: BP 146/93
--- NOTE | 2019-05-11 18:47 | NUR ---
HAD COMPLETED ALL THE PAPERWORK FOR THE [facility] IS TO BE ARRANGED AND MIR IVETT GODINEZ TO LEAVE. ON ARRIVAL TO THE ROOM TIFFANY INDICATED THAT HE DOES NOT HAVE A RIDE. HE MAY OR MAY NOT HAVE A RIDE TILL AFTER TEN PM. CONTINUED WITH CARE AND HUNG THE ANTIBIOTIC ORDERED FOR 1800. TELE LEFT OFF FOR NOW. PATIENT IS WITH BLOOD SUGAR AT 120 AT DINNER. NO ACUTE DISTRESS AT THIS TIME.
--- NOTE | 2019-05-11 19:10 | NUR ---
REPORT RECEIVED FROM DAY SHIFT RN. PATIENT WAS SEEN AND IS RESTING COMFORTABLY IN BED. NO DISTRESS NOTED. BREATHIN EVEN ON ROOM AIR. TELE OFF AND REMOVED BY DAY SHIFT RN BECAUSE PATIENT IS TO BE DISCHARGED TO HOME. PATIENT DOES NOT HAVE A RIDE AT THIS TIME. ERENDIRA KERN APPROVED TAXI VOUCHER. DENIES CHEST PAIN. NO C/O PAIN. IV TO THE RFA. PATENT AND INTACT. NO REDNESS OR SWELLING NOTED. ABLE TO MAKE NEEDS KNOWN. BREATHING EVEN ON ROOM AIR. NO SOB OR RESP DISTRESS NOTED. CANE AT BEDSIDE. COMFORT AND SAFETY MEASURES IN PLACE. BED IS LOCKED AND IN THE LOWEST POSITION. SIDE RAILS UP X2. CALL LIGHT IS WITHIN REACH.
--- NOTE | 2019-05-11 19:57 | NUR ---
ZURDO HAS ARRIVED TO TAKE PATIENT HOME. IV TO THE RFA REMOVED BY GINO FERNANDEZ. CATHETER IN INTACT. PATIENT TOOK ALL HIS BELONGINGS. DISCHARGE PAPERWORK AND EDUCATION GIVEN. EDUCATED PATIENT THAT HOME HEALTH WILL BE CONTACTING HIM. NO DISTRESS NOTED. BREATHING EVEN ON ROOM AIR. NO SOB OR RESP DISTRESS NOTED. DENIES CHEST PAIN. NO C/O PAIN. TAKEN TO LOBBY VIA WHEELCHAIR BY DENISSE MORSE.
== END 2019-05-11 19:57 | disposition home or self-care (01) | DRG 351 ==
LOC: ED 03:12 → DU 04:54
PROVIDERS: Specialist; ADMIT Internal Medicine
DX: M62.82 Rhabdomyolysis (principal); G93.41 Metabolic encephalopathy; N17.9 Acute kidney failure, unspecified; E11.40 Type 2 diabetes mellitus with diabetic neuropathy, unspecified; I11.9 Hypertensive heart disease without heart failure; R00.0 Tachycardia, unspecified; R26.81 Unsteadiness on feet; E86.0 Dehydration; R60.0 Localized edema; S50.312A Abrasion of left elbow, initial encounter; S50.311A Abrasion of right elbow, initial encounter; S50.812A Abrasion of left forearm, initial encounter; S50.811A Abrasion of right forearm, initial encounter; S80.211A Abrasion, right knee, initial encounter; I25.10 Atherosclerotic heart disease of native coronary artery without angina pectoris; G89.29 Other chronic pain; M54.9 Dorsalgia, unspecified; Z79.84 Long term (current) use of oral hypoglycemic drugs; Z88.0 Allergy status to penicillin; Z90.49 Acquired absence of other specified parts of digestive tract; W18.39XA Other fall on same level, initial encounter; Y92.091 Bathroom in other non-institutional residence as the place of occurrence of the external cause
CPT/HCPCS: 82962; 86431; G0378; G0480; J2270; J3490; J7030; Q0092